=== PATIENT | male | born 1970 | race Caucasian/White ===

== ENCOUNTER 2020-03-11 23:42 | Emergency (ER) | payer SELFPAY ==
[2020-03-11] MEDS ORDERED: Sodium Chloride 0.9% 2.5 ML Syringe FLUSH PRN (23:56)
[2020-03-11] MEDS ORDERED: Sodium Chloride 0.9% 10 ML Syringe FLUSH PRN (23:56)
[2020-03-12] MEDS ORDERED: Ondansetron 4 MG/2 ML SDV IVPUSH ONE ×2 (00:15→02:36)
[2020-03-12] MEDS ORDERED: Sodium Chloride 0.9% 1,000 ML IV SCH ×2 (00:15→01:00)
--- NOTE | 2020-03-12 00:15 | EDM.PDOC ---
ED HPI GENERAL MEDICAL PROBLEM - General Chief Complaint: Abdominal Pain Stated Complaint: ABDOMINAL PAIN/CHEST PAIN Time Seen by Provider: 03/11/20 23:55 Source of Information: Reports: Patient History Limitations: Reports: No Limitations - History of Present Illness INITIAL COMMENTS - FREE TEXT/NARRATIVE: 49-year-old male with history of ventral hernia, cholecystectomy, pancreatic cancer s/p chemotherapy and radiation therapy in 2010, diabetes, pancreatitis presents with abdominal pain. Pain is localized to the epigastrium and right upper quadrant and radiates up to the chest, pain is constant, progressively worsening over the last 2 days, currently rated 9/10, associated with nausea, chest discomfort, abdominal distention, decreased appetite. He denies fever, chills, vomiting, dyspnea. ROS: A 10-point review of systems, other than pertinent positives and negatives as stated per HPI, is otherwise negative Past medical history: No additional pertinent history Past Surgical history: No additional pertinent history Social history: No additional pertinent history Family history: No additional pertinent history PHYSICAL EXAM General: AOx4, GCS = 15, moderate distress HEENT: dry mucous membrane Neck: supple, no meningismus, no Kernig or Brudzinski Cardiac: S1S2 tachycardia Respiratory: CTAB, no crackles or rales, no wheezing Abdomen: Soft, reducible ventral hernia noted, epigastric/right upper quadrant tenderness, no rebound or guarding, nondistended, no pulsatile mass. Back: nontender Musculoskeletal: NVI distally, no deformity Neuro: No focal deficits Right Upper Abdomen Pain Score (Numeric/FACES): 8 - Related Data Allergies Allergy/AdvReac Type Severity Reaction Status Date / Time prochlorperazine Allergy Anxiety Verified 03/12/20 00:05 [From Compazine] Home Meds: Home Meds Insulin Aspart [NovoLOG] IM ASDIRECTED PRN 03/12/20 [History] Insulin Glarg,Human.Rec.Analog [Lantus] 60 unit SUBCUT DAILY 03/12/20 [History] Magnesium Citrate [Citrate of Magnesia] 296 ml PO BID #1 bottle 03/12/20 [Rx] Past Medical History Gastrointestinal History: Reports: Pancreatitis, Other (See Below) Other Gastrointestinal History: pancreatic cancer Genitourinary History: Reports: Renal Calculus Endocrine/Metabolic History: Reports: Diabetes, Type I - Past Surgical History GI Surgical History: Reports: Cholecystectomy Musculoskeletal Surgical History: Reports: Other (See Below) Other Musculoskeletal Surgeries/Procedures:: L hip Social & Family History - Family History Family Medical History: No Pertinent Family History - Recreational Drug Use Recreational Drug Use: No ED ROS GENERAL - Review of Systems Review Of Systems: See Below (see dictation) ED EXAM, GENERAL - Physical Exam Exam: See Below (see dictation) #1 Interpretation EKG Interpretation Comments: Heart rate = 109 bpm, sinus tachycardia, T wave inversion II,III,AWF, normal QRS interval, no STEMI. EKG and rhythm strip interpreted by me at 1205 Course - Vital Signs Last Recorded V/S: Last Vital Signs Temp 97.1 F 03/12/20 00:00 Pulse 108 H 03/12/20 01:35 Resp 18 03/12/20 01:35 BP 146/89 H 03/12/20 01:35 Pulse Ox 97 03/12/20 01:35 - Orders/Labs/Meds Orders: Active Orders 24 hr Category Date Time Status Blood Glucose Check, Bedside [RC] ONETIME Care 03/12/20 01:10 Active EKG Documentation Completion [RC] STAT Care 03/11/20 23:59 Active Pulse Oximetry [RC] ASDIRECTED Care 03/11/20 23:56 Active COMPREHENSIVE METABOLIC PN,CMP [CHEM] Stat Lab 03/11/20 23:56 Results LIPASE [CHEM] Stat Lab 03/11/20 23:56 Results MAGNESIUM [CHEM] Stat Lab 03/11/20 23:56 Results TROPONIN I [CHEM] Stat Lab 03/11/20 23:56 Results Dextrose 50% in Water Med 03/12/20 01:10 Active 50 ml IV ASDIRECTED PRN Glucagon,Human Recombinant [GlucaGen] Med 03/12/20 01:10 Active 1 mg IM ASDIRECTED PRN Sodium Chloride 0.9% [Normal Saline] 1,000 ml Med 03/12/20 00:15 Active IV .BOLUS Sodium Chloride 0.9% [Saline Flush] Med 03/11/20 23:56 Active 10 ml FLUSH ASDIRECTED PRN Sodium Chloride 0.9% [Saline Flush] Med 03/11/20 23:56 Active 2.5 ml FLUSH ASDIRECTED PRN Saline Lock Insert [OM.PC] Stat Oth 03/11/20 23:58 Ordered Medication Orders Dextrose/Water (Dextrose 50% In Water) 50 ml IV ASDIRECTED PRN PRN Reason: Hypoglycemia Glucagon (Glucagen) 1 mg IM ASDIRECTED PRN PRN Reason: Hypoglycemia Sodium Chloride (Normal Saline) 1,000 mls @ 999 mls/hr IV .BOLUS RODRIGO Last Admin: 03/12/20 00:32 Dose: 999 mls/hr Documented by: BREWKRI Sodium Chloride (Saline Flush) 10 ml FLUSH ASDIRECTED PRN PRN Reason: Keep Vein Open Sodium Chloride (Saline Flush) 2.5 ml FLUSH ASDIRECTED PRN PRN Reason: Keep Vein Open Labs: Laboratory Tests 03/12/20 03/12/20 03/12/20 Range/Units 00:00 00:10 00:10 WBC 7.17 (4.0-11.0) K/uL RBC 4.61 (4.50-5.90) M/uL Hgb 15.0 (13.0-17.0) g/dL Hct 43.0 (38.0-50.0) % MCV 93.3 (80.0-98.0) fL MCH 32.5 H (27.0-32.0) pg MCHC 34.9 (31.0-37.0) g/dL RDW Std Deviation 44.9 (28.0-62.0) fl RDW Coeff of Jeremie 13 (11.0-15.0) % Plt Count 182 (150-400) K/uL MPV 10.00 (7.40-12.00) fL Neut % (Auto) 64.9 (48.0-80.0) % Lymph % (Auto) 23.8 (16.0-40.0) % Richardson % (Auto) 9.2 (0.0-15.0) % Eos % (Auto) 1.8 (0.0-7.0) % Baso % (Auto) 0.3 (0.0-1.5) % Neut # (Auto) 4.7 (1.4-5.7) K/uL Lymph # (Auto) 1.7 (0.6-2.4) K/uL Richardson # (Auto) 0.7 (0.0-0.8) K/uL Eos # (Auto) 0.1 (0.0-0.7) K/uL Baso # (Auto) 0.0 (0.0-0.1) K/uL Nucleated RBC % 0.0 /100WBC Nucleated RBCs # 0 K/uL INR Lactate 3.9 H* (0.20-2.00) mmol/L Sodium (136-148) mmol/L Potassium (3.5-5.1) mmol/L Chloride (98-107) mmol/L Carbon Dioxide (21.0-32.0) mmol/L BUN (7.0-18.0) mg/dL Creatinine (0.8-1.3) mg/dL Est Cr Clr Drug Dosing Estimated GFR (MDRD) ml/min Glucose (74-106) mg/dL POC Glucose (60-110) mg/dL Calcium (8.5-10.1) mg/dL Magnesium (1.8-2.4) mg/dL Total Bilirubin (0.2-1.0) mg/dL AST (15-37) IU/L Alkaline Phosphatase (46-116) U/L Troponin I (0.000-0.056) ng/mL Total Protein (6.4-8.2) g/dL Albumin (3.4-5.0) g/dL Globulin (2.6-4.0) g/dL Albumin/Globulin Ratio (0.9-1.6) Lipase (73-393) U/L Urine Color YELLOW Urine Appearance CLEAR Urine pH 7.0 (5.0-8.0) Ur Specific [place] 1.010 (1.001-1.035) Urine Protein NEGATIVE (NEGATIVE) mg/dL Urine Glucose (UA) >=1000 (NEGATIVE) mg/dL Urine Ketones NEGATIVE (NEGATIVE) mg/dL Urine Occult Blood NEGATIVE (NEGATIVE) Urine Nitrite NEGATIVE (NEGATIVE) Urine Bilirubin NEGATIVE (NEGATIVE) Urine Urobilinogen 0.2 (<2.0) EU/dL Ur Leukocyte Esterase NEGATIVE (NEGATIVE) 03/12/20 03/12/20 03/12/20 Range/Units 00:10 00:10 01:50 WBC (4.0-11.0) K/uL RBC (4.50-5.90) M/uL Hgb (13.0-17.0) g/dL Hct (38.0-50.0) % MCV (80.0-98.0) fL MCH (27.0-32.0) pg MCHC (31.0-37.0) g/dL RDW Std Deviation (28.0-62.0) fl RDW Coeff of Jeremie (11.0-15.0) % Plt Count (150-400) K/uL MPV (7.40-12.00) fL Neut % (Auto) (48.0-80.0) % Lymph % (Auto) (16.0-40.0) % Richardson % (Auto) (0.0-15.0) % Eos % (Auto) (0.0-7.0) % Baso % (Auto) (0.0-1.5) % Neut # (Auto) (1.4-5.7) K/uL Lymph # (Auto) (0.6-2.4) K/uL Richardson # (Auto) (0.0-0.8) K/uL Eos # (Auto) (0.0-0.7) K/uL Baso # (Auto) (0.0-0.1) K/uL Nucleated RBC % /100WBC Nucleated RBCs # K/uL INR 0.90 Lactate 3.2 H* (0.20-2.00) mmol/L Sodium 131 L (136-148) mmol/L Potassium 4.4 (3.5-5.1) mmol/L Chloride 95 L (98-107) mmol/L Carbon Dioxide 26.6 (21.0-32.0) mmol/L BUN 12 (7.0-18.0) mg/dL Creatinine 0.9 (0.8-1.3) mg/dL Est Cr Clr Drug Dosing TNP Estimated GFR (MDRD) > 60.0 ml/min Glucose 490 H (74-106) mg/dL POC Glucose (60-110) mg/dL Calcium 8.1 L (8.5-10.1) mg/dL Magnesium 2.4 (1.8-2.4) mg/dL Total Bilirubin 0.7 (0.2-1.0) mg/dL AST 26 (15-37) IU/L Alkaline Phosphatase 155 H (46-116) U/L Troponin I < 0.050 (0.000-0.056) ng/mL Total Protein 7.0 (6.4-8.2) g/dL Albumin 3.6 (3.4-5.0) g/dL Globulin 3.4 (2.6-4.0) g/dL Albumin/Globulin Ratio 1.1 (0.9-1.6) Lipase 105 (73-393) U/L Urine Color Urine Appearance Urine pH (5.0-8.0) Ur Specific [place] (1.001-1.035) Urine Protein (NEGATIVE) mg/dL Urine Glucose (UA) (NEGATIVE) mg/dL Urine Ketones (NEGATIVE) mg/dL Urine Occult Blood (NEGATIVE) Urine Nitrite (NEGATIVE) Urine Bilirubin (NEGATIVE) Urine Urobilinogen (<2.0) EU/dL Ur Leukocyte Esterase (NEGATIVE) 03/12/20 03/12/20 Range/Units 01:50 02:34 WBC (4.0-11.0) K/uL RBC (4.50-5.90) M/uL Hgb (13.0-17.0) g/dL Hct (38.0-50.0) % MCV (80.0-98.0) fL MCH (27.0-32.0) pg MCHC (31.0-37.0) g/dL RDW Std Deviation (28.0-62.0) fl RDW Coeff of Jeremie (11.0-15.0) % Plt Count (150-400) K/uL MPV (7.40-12.00) fL Neut % (Auto) (48.0-80.0) % Lymph % (Auto) (16.0-40.0) % Richardson % (Auto) (0.0-15.0) % Eos % (Auto) (0.0-7.0) % Baso % (Auto) (0.0-1.5) % Neut # (Auto) (1.4-5.7) K/uL Lymph # (Auto) (0.6-2.4) K/uL Richardson # (Auto) (0.0-0.8) K/uL Eos # (Auto) (0.0-0.7) K/uL Baso # (Auto) (0.0-0.1) K/uL Nucleated RBC % /100WBC Nucleated RBCs # K/uL INR Lactate (0.20-2.00) mmol/L Sodium (136-148) mmol/L Potassium (3.5-5.1) mmol/L Chloride (98-107) mmol/L Carbon Dioxide (21.0-32.0) mmol/L BUN (7.0-18.0) mg/dL Creatinine (0.8-1.3) mg/dL Est Cr Clr Drug Dosing Estimated GFR (MDRD) ml/min Glucose (74-106) mg/dL POC Glucose 275 H (60-110) mg/dL Calcium (8.5-10.1) mg/dL Magnesium (1.8-2.4) mg/dL Total Bilirubin (0.2-1.0) mg/dL AST (15-37) IU/L Alkaline Phosphatase (46-116) U/L Troponin I < 0.050 (0.000-0.056) ng/mL Total Protein (6.4-8.2) g/dL Albumin (3.4-5.0) g/dL Globulin (2.6-4.0) g/dL Albumin/Globulin Ratio (0.9-1.6) Lipase (73-393) U/L Urine Color Urine Appearance Urine pH (5.0-8.0) Ur Specific [place] (1.001-1.035) Urine Protein (NEGATIVE) mg/dL Urine Glucose (UA) (NEGATIVE) mg/dL Urine Ketones (NEGATIVE) mg/dL Urine Occult Blood (NEGATIVE) Urine Nitrite (NEGATIVE) Urine Bilirubin (NEGATIVE) Urine Urobilinogen (<2.0) EU/dL Ur Leukocyte Esterase (NEGATIVE) Meds: Medications Generic Name Dose Route Start Last Admin Trade Name Freq PRN Reason Stop Dose Admin Dextrose/Water 50 ml 03/12/20 01:10 Dextrose 50% In Water IV ASDIRECTED PRN Hypoglycemia Glucagon 1 mg 03/12/20 01:10 Glucagen IM ASDIRECTED PRN Hypoglycemia Sodium Chloride 1,000 mls @ 999 mls/hr 03/12/20 00:15 03/12/20 00:32 Normal Saline IV 999 mls/hr .BOLUS RODRIGO Administration Sodium Chloride 10 ml 03/11/20 23:56 Saline Flush FLUSH ASDIRECTED PRN Keep Vein Open Sodium Chloride 2.5 ml 03/11/20 23:56 Saline Flush FLUSH ASDIRECTED PRN Keep Vein Open Discontinued Medications Generic Name Dose Route Start Last Admin Trade Name Freq PRN Reason Stop Dose Admin Hydromorphone HCl 1 mg 03/12/20 02:35 03/12/20 02:43 Dilaudid IVPUSH 03/12/20 02:36 1 mg ONETIME ONE Administration Pantoprazole Sodium 40 mg/ 20 mls @ 420 mls/hr 03/12/20 00:22 03/12/20 00:32 Sodium Chloride IVPUSH 03/12/20 00:24 420 mls/hr ONETIME ONE Administration Sodium Chloride 1,000 mls @ 999 mls/hr 03/12/20 01:00 Normal Saline IV .BOLUS RODRIGO Sodium Chloride 1,000 mls @ 999 mls/hr 03/12/20 01:37 03/12/20 01:39 Normal Saline IV 03/12/20 02:37 999 mls/hr NOW STA Administration Insulin Human Regular 5 unit 03/12/20 01:10 03/12/20 01:38 Novolin R IVPUSH 03/12/20 01:11 5 unit ONETIME ONE Administration Protocol Iopamidol 100 ml 03/12/20 01:43 03/12/20 01:43 Isovue-370 (76%) IVPUSH 03/12/20 01:44 100 ml ONETIME STA Administration Morphine Sulfate 4 mg 03/12/20 00:22 03/12/20 00:36 Morphine IVPUSH 03/12/20 00:23 4 mg ONETIME ONE Administration Ondansetron HCl 4 mg 03/12/20 00:15 03/12/20 00:33 Zofran IVPUSH 03/12/20 00:16 4 mg ONETIME ONE Administration Ondansetron HCl 4 mg 03/12/20 02:36 03/12/20 02:43 Zofran IVPUSH 03/12/20 02:37 4 mg ONETIME ONE Administration - Re-Assessments/Exams Free Text/Narrative Re-Assessment/Exam: 03/12/20 02:37 Blood glucose improved to 275, pain coming back, will give 1 mg IV Dilaudid and 4 mg IV Zofran. Lactic acid improved from 3.9 to 3.2 after 2 L IV fluids. 03/12/20 03:00 After IV fluids, insulin, pain medications in the ER, the patient improved and is currently stable for discharge. His abdominal pain is completely resolved. I performed a repeat exam and did not appreciate new abnormal findings. Patient exhibits normal vital signs and has a normal gait on road test. I advised the patient to return to the ER for reevaluation if symptoms worsened, including fever, worsening pain, or any other worrisome symptoms. I instructed the patient to follow up with their PCP within 2-3 days. MEDICAL DECISION MAKING: I reviewed the patients past medical records, lab and radiographic findings. I discussed the case with the patient. My differential diagnosis included: SBO, pancreatitis, mesenteric ischemia. His lactate was initially 3.9, after 2 L of IV fluids a clear to 3.2. His blood glucose improved from 400s 2-75 after IV fluids. His pain was completely resolved after IV Dilaudid and antiemetics. CT angio A/P was performed given the elevated lactic acidosis, which did not demonstrate any signs of mesenteric ischemia, bowel obstruction. It did demonstrate fecal retention. His lipase was unremarkable for pancreatitis. Patient is stable for outpatient follow-up. Instructed him to take Dulcolax and magnesium citrate for his fecal retention. Departure - Departure Time of Disposition: 03:02 Disposition: Home, Self-Care 01 Condition: Good Clinical Impression: Abdominal pain, Hyperglycemia, Constipation - Discharge Information *PRESCRIPTION DRUG MONITORING PROGRAM REVIEWED*: Not Applicable *COPY OF PRESCRIPTION DRUG MONITORING REPORT IN PATIENT RICCARDO: Not Applicable Prescriptions: Magnesium Citrate [Citrate of Magnesia] 296 ml PO BID #1 bottle Instructions: Hyperglycemia, Constipation, Adult, Abdominal Pain, Adult, [id number] Referrals: PCP,None [Primary Care Provider] - Forms: ED Department Discharge Additional Instructions: The need for follow-up, as well as the timing and circumstances, are variable depending upon the specifics of your emergency department visit. If you don't have a primary care physician on staff, we will provide you with a referral. We always advise you to contact your personal physician following an emergency department visit to inform them of the circumstance of the visit and for follow-up with them and/or the need for any referrals to a consulting specialist. The emergency department will also refer you to a specialist when appropriate. This referral assures that you have the opportunity for follow-up care with a specialist. All of these measure are taken in an effort to provide you with optimal care, which includes your follow-up. Under all circumstances we always encourage you to contact your private physician who remains a resource for coordinating your care. When calling for follow-up care, please make the office aware that this follow-up is from your recent emergency room visit. If for any reason you are refused follow-up, please contact the [facility] Emergency Department at and asked to speak to the emergency department charge nurse. If you do not have a primary care doctor, please follow up with the clinics below within 3-5 days. [facility] - Primary [facility] [address] [place] [address] [address] Sepsis Event Note (ED) - Evaluation Sepsis Screening Result: No Definite Risk - Focused Exam Vital Signs: Vital Signs Temp Pulse Resp BP Pulse Ox 03/12/20 01:35 108 H 18 146/89 H 97 03/12/20 00:00 97.1 F 122 H 22 H 178/104 H 99 - My Orders Last 24 Hours: My Active Orders 03/11/20 23:56 Pulse Oximetry [RC] ASDIRECTED COMPREHENSIVE METABOLIC PN,CMP [CHEM] Stat LIPASE [CHEM] Stat MAGNESIUM [CHEM] Stat TROPONIN I [CHEM] Stat Sodium Chloride 0.9% [Saline Flush] 10 ml FLUSH ASDIRECTED PRN Sodium Chloride 0.9% [Saline Flush] 2.5 ml FLUSH ASDIRECTED PRN 03/11/20 23:58 Saline Lock Insert [OM.PC] Stat 03/11/20 23:59 EKG Documentation Completion [RC] STAT 03/12/20 00:15 Sodium Chloride 0.9% [Normal Saline] 1,000 ml IV .BOLUS 03/12/20 01:10 Blood Glucose Check, Bedside [RC] ONETIME Dextrose 50% in Water 50 ml IV ASDIRECTED PRN Glucagon,Human Recombinant [GlucaGen] 1 mg IM ASDIRECTED PRN - Assessment/Plan Last 24 Hours: My Active Orders 03/11/20 23:56 Pulse Oximetry [RC] ASDIRECTED COMPREHENSIVE METABOLIC PN,CMP [CHEM] Stat LIPASE [CHEM] Stat MAGNESIUM [CHEM] Stat TROPONIN I [CHEM] Stat Sodium Chloride 0.9% [Saline Flush] 10 ml FLUSH ASDIRECTED PRN Sodium Chloride 0.9% [Saline Flush] 2.5 ml FLUSH ASDIRECTED PRN 03/11/20 23:58 Saline Lock Insert [OM.PC] Stat 03/11/20 23:59 EKG Documentation Completion [RC] STAT 03/12/20 00:15 Sodium Chloride 0.9% [Normal Saline] 1,000 ml IV .BOLUS 03/12/20 01:10 Blood Glucose Check, Bedside [RC] ONETIME Dextrose 50% in Water 50 ml IV ASDIRECTED PRN Glucagon,Human Recombinant [GlucaGen] 1 mg IM ASDIRECTED PRN
[2020-03-12] MEDS ORDERED: Pantoprazole 40 MG in Sodium Chloride 0.9% 20 ML IVPUSH ONE (00:22)
[2020-03-12] MEDS ORDERED: Morphine 4 MG/ML Syringe IVPUSH ONE (00:22)
[2020-03-12 00:52] LABS: BLOOD UREA NITROGEN,BUN 12 mg/dL (7.0-18.0); CARBON DIOXIDE,CO2 26.6 mmol/L (21.0-32.0); CHLORIDE,CL 95 mmol/L (98-107); GLUCOSE RANDOM 490 mg/dL (74-106); LIPASE 105 U/L (73-393); POTASSIUM,K 4.4 mmol/L (3.5-5.1); SODIUM,NA 131 mmol/L (136-148)
[2020-03-12] MEDS ORDERED: Glucagon,Human Recombinant 1 MG Vial IM PRN (01:10)
[2020-03-12] MEDS ORDERED: 50% Dextrose in Water 50 ML Syringe IV PRN (01:10)
[2020-03-12] MEDS ORDERED: Insulin Regular, Human 100 Units/ML 10 ML Vial IVPUSH ONE (01:10)
[2020-03-12] MEDS ORDERED: Sodium Chloride 0.9% 1,000 ML IV STA (01:37)
[2020-03-12] MEDS ORDERED: Iopamidol 755 Mg/ML 100 ML Bottle IVPUSH STA (01:43)
--- NOTE | 2020-03-12 01:54 | CR ---
INDICATION: Chest pain TECHNIQUE: Chest radiograph 1 view COMPARISON: None FINDINGS: Moderate degradation of image quality noted due to body habitus. Mediastinum: The mediastinum is normal in appearance. The heart silhouette is normal in size and morphology. Lung: Mild bibasilar subsegmental atelectasis is noted with small lung volumes. No sign of pleural effusion seen. No pneumothorax is identified. Bone and Soft tissue: Unremarkable for age. IMPRESSION: 1. Mild bibasilar subsegmental atelectasis is noted with small lung volumes. Dictated by: Randolph Roberson MD @ 03/12/2020 01:52:27 (Electronically Signed)
[2020-03-12] MEDS ORDERED: HYDROmorphone 1 MG/ML Syringe IVPUSH ONE (02:35)
--- NOTE | 2020-03-12 02:39 | CT ---
INDICATION: Epigastric pain, history of pancreatic cancer, lactate 3.9 TECHNIQUE: CTA abdomen and pelvis acquired with IV contrast. Per cc Isovue 370 COMPARISON: None FINDINGS: Lower chest: Unremarkable. Liver: Unremarkable. Spleen: Unremarkable. Pancreas: Unremarkable. Gallbladder and bile ducts: Cholecystectomy. Kidneys: Small nonobstructing right renal calculi. Adrenal glands: Unremarkable. GI tract: Colonic fecal retention involving the ascending and transverse colon.. Appendix is normal. Vascular structures: Unremarkable. Lymph nodes: Unremarkable. Miscellaneous: Unremarkable. No free air or significant free fluid. Pelvic Organs: Unremarkable. Left-sided hip arthroplasty. Unremarkable for age. IMPRESSION: No definitive findings to explain patient`s epigastric pain. Normal-appearing large and small bowel. Please note that all CT scans at this facility use dose modulation, iterative reconstruction, and/or weight-based dosing when appropriate to reduce radiation dose to as low as reasonably achievable. Dictated by Naveen Bowman MD @ Mar 12 2020 2:28AM Signed by Dr. Naveen Bowman @ Mar 12 2020 2:36AM
== END 2020-03-12 03:15 | disposition home or self-care (01) ==
LOC: MW.ED 23:42
DX: K59.00 Constipation, unspecified (principal); E10.65 Type 1 diabetes mellitus with hyperglycemia; R10.13 Epigastric pain; R10.11 Right upper quadrant pain; Z88.8 Allergy status to other drugs, medicaments and biological substances; Z90.49 Acquired absence of other specified parts of digestive tract; Z85.07 Personal history of malignant neoplasm of pancreas
CPT/HCPCS: 36415; 71045; 74174; 80053; 81003; 82962; 83605; 83690; 83735; 84484; 85025; 85610; 93005; 96374; 96375; 96376; 99284; C9113; J1170; J2270; J2405; J7030; J7040; Q9967; 93010; 99283; J1815-GY

== ENCOUNTER 2020-03-12 17:23 | Emergency (ER) | payer SELFPAY ==
[2020-03-12] MEDS ORDERED: Sodium Chloride 0.9% 2.5 ML Syringe FLUSH PRN (18:23)
[2020-03-12] MEDS ORDERED: Sodium Chloride 0.9% 10 ML Syringe FLUSH PRN (18:23)
[2020-03-12] MEDS ORDERED: Alum Hydrox/Mag Hydrox/Simeth 15 ML, Lidocaine 2% 5 ML PO ONE ×2 (18:28)
[2020-03-12] MEDS ORDERED: Sodium Chloride 0.9% 1,000 ML IV ONE ×2 (18:53→19:44)
[2020-03-12] MEDS ORDERED: HYDROmorphone 1 MG/ML Syringe IVPUSH ONE (18:56)
--- NOTE | 2020-03-12 18:58 | EDM.PDOC ---
<Juan Serna - Last Filed: 03/12/20 18:57> ED HPI GENERAL MEDICAL PROBLEM - General Chief Complaint: Abdominal Pain Stated Complaint: ABDOMINAL PAIN Time Seen by Provider: 03/12/20 17:36 - History of Present Illness INITIAL COMMENTS - FREE TEXT/NARRATIVE: CHIEF COMPLAINT(S): Abdominal pain HISTORY OF PRESENT ILLNESS: This is a 49-year-old man with a past medical history of pancreatic cancer in 2009 and history of chronic pancreatitis and nephrolithiasis who comes to the emergency department with a chief complaint of abdominal pain. The patient states that he was evaluated in the emergency department yesterday. He states that he felt better when he went home however the pain has worsened. He states that he was given laxatives and magnesium citrate for constipation and he did have multiple watery bowel movements today but now formed stools. He states that he is experiencing the continued pain in his right upper abdomen which he describes as constant and achy which radiates to his back. He does have some associated nausea but denies any vomiting. He denies any hematemesis, bilious emesis, hematochezia, or melena. He denies any dysuria. He states that this does not feel like the prior episodes of his nephrolithiasis and does not feel like when he had pancreatic cancer and it feels similar to when he had pancreatitis. He states that he has been tolerating p.o. however today after eating he did feel the pain worsen. He denies any chest pain, shortness of breath, cough, fever, or chills. He denies any other symptoms. REVIEW OF SYSTEMS: Constitutional: Denies fever, chills. Eyes: Denies eye pain Ears, Nose, Mouth, & Throat: Denies earache Cardiovascular: Denies chest pain Respiratory: Denies shortness of breath Gastrointestinal: Positive for abdominal pain and nausea. Denies vomiting, diarrhea, hematochezia, hematemesis, bilious emesis Genitourinary: Denies hematuria Skin:Denies a rash Neurological: Denies blurred vision Psychiatric: Denies depression PAST MEDICAL HISTORY: As per history of present illness and as reviewed below otherwise noncontributory. SURGICAL HISTORY: As per history of present illness and as reviewed below otherwise noncontributory. SOCIAL HISTORY: As per history of present illness and as reviewed below otherwise noncontributory. FAMILY HISTORY: As per history of present illness and as reviewed below otherwise noncontributory. EXAMINATION OF ORGAN SYSTEMS/BODY AREAS: Constitutional: Blood pressure is 140/101, heart rate 133, respiratory rate 20 with an oxygen saturation 95% on room air. Temperature 37.2 General: Middle-aged gentleman who does not appear to be in any acute distress who is walking around the room Psychiatric: Appropriate mood and affect. Eyes: No scleral icterus or conjunctival erythema ENMT: Moist mucous membranes. No pharyngeal erythema Cardiovascular: Tachycardic but regular no gallops, murmurs, or rubs. Bilateral upper extremity pulses symmetric and intact. No peripheral edema. No JVD. Respiratory: Lungs clear to auscultation bilaterally. No wheezes, rales, or rhonchi. Gastrointestinal: Soft, distended, mild tenderness to palpation in the right upper quadrant. Negative Guthrie's and McBurney's. Normoactive bowel sounds no tympany to palpation. Negative fluid wave. Liver is palpated in the patient's right flank. Genitourinary: No suprapubic tenderness no CVA tenderness Musculoskeletal: Normal range of motion. Skin: No lesions or abrasions. Neurological: Alert, GCS 15 MEDICAL DECISION MAKING AND COURSE IN THE ED WITH INTERPRETATION/REVIEW OF DIAGNOSTIC STUDIES: This is a 49-year-old man with a past medical history of pancreatic cancer in remission in 2009, nephrolithiasis, and history of chronic pancreatitis who comes to the emergency department with continued right upper quadrant abdominal pain associated with nausea who is tachycardic but overall appears well. At this time I did review the patient's chart and his laboratory analysis yesterday reveals a lactic acidosis and hyperglycemia without any evidence of transaminitis or pancreatitis with 2 - troponins and a negative urinalysis. The patient did receive a CTA of the abdomen and pelvis which did not reveal any abnormalities of the pancreas, liver, spleen but did reveal stool burden. At this time I do not believe further imaging is indicated. I did have a discussion with the patient that we would like to repeat labs to evaluate for any changes. I will provide the patient with 1 L of normal saline bolus, 1 mg of Dilaudid for pain, and a GI cocktail. Differential could also include peptic ulcer disease however unlikely given the lactic acidosis from yesterday. Also send a repeat lipase and a hepatitis panel. At the time of signout, the patient's laboratory analysis was pending. The patient was pending laboratory analysis and work-up. DISPOSITION: Patient was signed out to oncoming team physician Abdominal Pain Score (Numeric/FACES): 10 - Related Data Allergies Allergy/AdvReac Type Severity Reaction Status Date / Time prochlorperazine Allergy Anxiety Verified 03/12/20 00:05 [From Compazine] Home Meds: Home Meds Insulin Aspart [NovoLOG] IM ASDIRECTED PRN 03/12/20 [History] Insulin Glarg,Human.Rec.Analog [Lantus] 60 unit SUBCUT DAILY 03/12/20 [History] LORazepam [Ativan] 0.5 mg PO Q6H PRN #10 tab 03/12/20 [Rx] Magnesium Citrate [Citrate of Magnesia] 296 ml PO BID #1 bottle 03/12/20 [Rx] methylPREDNISolone [Medrol Dose Pack] 4 mg PO DAILY #21 tab 03/12/20 [Rx] Past Medical History Gastrointestinal History: Reports: Pancreatitis, Other (See Below) Other Gastrointestinal History: pancreatic cancer Genitourinary History: Reports: Renal Calculus Endocrine/Metabolic History: Reports: Diabetes, Type I - Past Surgical History GI Surgical History: Reports: Cholecystectomy Musculoskeletal Surgical History: Reports: Other (See Below) Other Musculoskeletal Surgeries/Procedures:: L hip Social & Family History - Family History Family Medical History: No Pertinent Family History - Tobacco Use Tobacco Use Status *Q: Never Tobacco User - Recreational Drug Use Recreational Drug Use: No ED ROS GENERAL - Review of Systems Review Of Systems: See Below ED EXAM, GENERAL - Physical Exam Exam: See Below Departure - Departure Disposition: Home, Self-Care 01 Clinical Impression: Abdominal pain, Nausea and vomiting, Lactic acid increased, Hyperglycemia - Discharge Information Prescriptions: LORazepam [Ativan] 0.5 mg PO Q6H PRN #10 tab PRN Reason: Nausea/Vomiting methylPREDNISolone [Medrol Dose Pack] 4 mg PO DAILY #21 tab Instructions: Nausea, Adult, Abdominal Pain, Adult, [id number] Referrals: PCP,None [Primary Care Provider] - Forms: ED Department Discharge Additional Instructions: [facility] - General Surgery Professional [address], [address] [place] [address] The following information is given to patients seen in the emergency department who are being discharged to home. This information is to outline your options for follow-up care. We provide all patients seen in our emergency department with a follow-up referral. The need for follow-up, as well as the timing and circumstances, are variable depending upon the specifics of your emergency department visit. If you don't have a primary care physician on staff, we will provide you with a referral. We always advise you to contact your personal physician following an emergency department visit to inform them of the circumstance of the visit and for follow-up with them and/or the need for any referrals to a consulting specialist. The emergency department will also refer you to a specialist when appropriate. This referral assures that you have the opportunity for follow-up care with a specialist. All of these measure are taken in an effort to provide you with optimal care, which includes your follow-up. Under all circumstances we always encourage you to contact your private physician who remains a resource for coordinating your care. When calling for follow-up care, please make the office aware that this follow-up is from your recent emergency room visit. If for any reason you are refused follow-up, please contact the [facility] Emergency Department at and asked to speak to the emergency department charge nurse. Sepsis Event Note (ED) - Evaluation Sepsis Screening Result: No Definite Risk <Tomi Em - Last Filed: 03/12/20 23:12> Course - Vital Signs Text/Narrative:: 1943 hrs. the patient feels much less pain. He still nauseated after 1 dose of Zofran. He understands that tomorrow is Thanksgiving and we had no beds. Observation here is not an option. Plan another liter of fluids and more Zofran and reassess. 8:12 PM a few moments ago I was notified a glucose of 554. A venous blood gas reveals no acidosis. Peripheral bicarb is normal. The patient is noncompliant with his cholesterol medicine for a long time according to him and I suppose he may be noncompliant with his diabetes medicine. At this point patient will be given insulin and fluids and rechecked. 2106 hrs. nausea still present after 8 mg of ondansetron. Patient comfortable otherwise. See orders 2206 hrs. the patient's nausea persists. His pain is tolerable. His lactic acid is improved and his sugar came down with insulin. The patient is able to tolerate p.o. I do not have anything to add except he should probably have endoscopy. The following day will be Thanks day. Believe I will get him home with symptomatic treatment and have him call surgery in 2 days. He should arrange to have endoscopy and follow-up laboratory work. Last Recorded V/S: Last Vital Signs Temp 37.2 C 03/12/20 17:28 Pulse 120 H 03/12/20 18:46 Resp 18 03/12/20 18:46 BP 150/101 H 03/12/20 18:46 Pulse Ox 95 03/12/20 18:46 - Orders/Labs/Meds Orders: Active Orders 24 hr Category Date Time Status Blood Glucose Check, Bedside [RC] ONETIME Care 03/12/20 21:30 Active HEPATITIS PANEL (4) [REF] Stat Lab 03/12/20 18:45 Received Dextrose 50% in Water Med 03/12/20 20:11 Active 50 ml IV ASDIRECTED PRN Glucagon,Human Recombinant [GlucaGen] Med 03/12/20 20:11 Active 1 mg IM ASDIRECTED PRN Sodium Chloride 0.9% [Saline Flush] Med 03/12/20 18:23 Active 10 ml FLUSH ASDIRECTED PRN Sodium Chloride 0.9% [Saline Flush] Med 03/12/20 18:23 Active 2.5 ml FLUSH ASDIRECTED PRN Saline Lock Insert [OM.PC] Stat Oth 03/12/20 18:23 Ordered Medication Orders Dextrose/Water (Dextrose 50% In Water) 50 ml IV ASDIRECTED PRN PRN Reason: Hypoglycemia Glucagon (Glucagen) 1 mg IM ASDIRECTED PRN PRN Reason: Hypoglycemia Sodium Chloride (Saline Flush) 10 ml FLUSH ASDIRECTED PRN PRN Reason: Keep Vein Open Last Admin: 03/12/20 18:44 Dose: 10 ml Documented by: TIMMY Sodium Chloride (Saline Flush) 2.5 ml FLUSH ASDIRECTED PRN PRN Reason: Keep Vein Open Last Admin: 03/12/20 18:44 Dose: 2.5 ml Documented by: TIMMY Labs: Laboratory Tests 03/12/20 03/12/20 03/12/20 Range/Units 18:24 18:24 18:24 WBC 8.77 (4.0-11.0) K/uL RBC 4.82 (4.50-5.90) M/uL Hgb 16.1 (13.0-17.0) g/dL Hct 44.7 (38.0-50.0) % MCV 92.7 (80.0-98.0) fL MCH 33.4 H (27.0-32.0) pg MCHC 36.0 (31.0-37.0) g/dL RDW Std Deviation 44.6 (28.0-62.0) fl RDW Coeff of Jeremie 13 (11.0-15.0) % Plt Count 218 (150-400) K/uL MPV 9.90 (7.40-12.00) fL Neut % (Auto) 73.7 (48.0-80.0) % Lymph % (Auto) 16.0 (16.0-40.0) % [place] % (Auto) 8.7 (0.0-15.0) % Eos % (Auto) 1.4 (0.0-7.0) % Baso % (Auto) 0.2 (0.0-1.5) % Neut # (Auto) 6.5 H (1.4-5.7) K/uL Lymph # (Auto) 1.4 (0.6-2.4) K/uL [place] # (Auto) 0.8 (0.0-0.8) K/uL Eos # (Auto) 0.1 (0.0-0.7) K/uL Baso # (Auto) 0.0 (0.0-0.1) K/uL Nucleated RBC % 0.0 /100WBC Nucleated RBCs # 0 K/uL INR APTT (18.6-31.3) SEC VBG pH (7.31-7.41) VBG pCO2 (35-45) mmHG VBG pO2 (30-40) mmHG VBG HCO3 (22-30) mEq/L VBG Total CO2 (41-51) mmol/L VBG Base Excess (-3.0-3.0) Lactate 5.4 H* (0.20-2.00) mmol/L Sodium 130 L (136-148) mmol/L Potassium 4.3 (3.5-5.1) mmol/L Chloride 94 L (98-107) mmol/L Carbon Dioxide 17.5 L (21.0-32.0) mmol/L BUN 9 (7.0-18.0) mg/dL Creatinine 1.2 (0.8-1.3) mg/dL Est Cr Clr Drug Dosing 77.73 mL/min Estimated GFR (MDRD) > 60.0 ml/min Glucose 554 H* (74-106) mg/dL POC Glucose (60-110) mg/dL Calcium 7.9 L (8.5-10.1) mg/dL Magnesium 2.4 (1.8-2.4) mg/dL Total Bilirubin 0.8 (0.2-1.0) mg/dL AST 27 (15-37) IU/L ALT 35 (14-63) IU/L Alkaline Phosphatase 159 H (46-116) U/L Ammonia (19-54) ug/dL Total Protein 7.6 (6.4-8.2) g/dL Albumin 3.8 (3.4-5.0) g/dL Globulin 3.8 (2.6-4.0) g/dL Albumin/Globulin Ratio 1.0 (0.9-1.6) Lipase 99 (73-393) U/L Acetaminophen <2.0 ug/mL Ketones (NEG) 03/12/20 03/12/20 03/12/20 Range/Units 18:24 18:24 18:24 WBC (4.0-11.0) K/uL RBC (4.50-5.90) M/uL Hgb (13.0-17.0) g/dL Hct (38.0-50.0) % MCV (80.0-98.0) fL MCH (27.0-32.0) pg MCHC (31.0-37.0) g/dL RDW Std Deviation (28.0-62.0) fl RDW Coeff of Jeremie (11.0-15.0) % Plt Count (150-400) K/uL MPV (7.40-12.00) fL Neut % (Auto) (48.0-80.0) % Lymph % (Auto) (16.0-40.0) % [place] % (Auto) (0.0-15.0) % Eos % (Auto) (0.0-7.0) % Baso % (Auto) (0.0-1.5) % Neut # (Auto) (1.4-5.7) K/uL Lymph # (Auto) (0.6-2.4) K/uL [place] # (Auto) (0.0-0.8) K/uL Eos # (Auto) (0.0-0.7) K/uL Baso # (Auto) (0.0-0.1) K/uL Nucleated RBC % /100WBC Nucleated RBCs # K/uL INR 0.86 APTT 22.2 (18.6-31.3) SEC VBG pH 7.42 H (7.31-7.41) VBG pCO2 33 L (35-45) mmHG VBG pO2 75 H (30-40) mmHG VBG HCO3 22 (22-30) mEq/L VBG Total CO2 19 L (41-51) mmol/L VBG Base Excess -2.1 (-3.0-3.0) Lactate (0.20-2.00) mmol/L Sodium (136-148) mmol/L Potassium (3.5-5.1) mmol/L Chloride (98-107) mmol/L Carbon Dioxide (21.0-32.0) mmol/L BUN (7.0-18.0) mg/dL Creatinine (0.8-1.3) mg/dL Est Cr Clr Drug Dosing mL/min Estimated GFR (MDRD) ml/min Glucose (74-106) mg/dL POC Glucose (60-110) mg/dL Calcium (8.5-10.1) mg/dL Magnesium (1.8-2.4) mg/dL Total Bilirubin (0.2-1.0) mg/dL AST (15-37) IU/L ALT (14-63) IU/L Alkaline Phosphatase (46-116) U/L Ammonia 72 H (19-54) ug/dL Total Protein (6.4-8.2) g/dL Albumin (3.4-5.0) g/dL Globulin (2.6-4.0) g/dL Albumin/Globulin Ratio (0.9-1.6) Lipase (73-393) U/L Acetaminophen ug/mL Ketones (NEG) 03/12/20 03/12/20 03/12/20 Range/Units 18:40 21:20 21:21 WBC (4.0-11.0) K/uL RBC (4.50-5.90) M/uL Hgb (13.0-17.0) g/dL Hct (38.0-50.0) % MCV (80.0-98.0) fL MCH (27.0-32.0) pg MCHC (31.0-37.0) g/dL RDW Std Deviation (28.0-62.0) fl RDW Coeff of Jeremie (11.0-15.0) % Plt Count (150-400) K/uL MPV (7.40-12.00) fL Neut % (Auto) (48.0-80.0) % Lymph % (Auto) (16.0-40.0) % [place] % (Auto) (0.0-15.0) % Eos % (Auto) (0.0-7.0) % Baso % (Auto) (0.0-1.5) % Neut # (Auto) (1.4-5.7) K/uL Lymph # (Auto) (0.6-2.4) K/uL [place] # (Auto) (0.0-0.8) K/uL Eos # (Auto) (0.0-0.7) K/uL Baso # (Auto) (0.0-0.1) K/uL Nucleated RBC % /100WBC Nucleated RBCs # K/uL INR APTT (18.6-31.3) SEC VBG pH (7.31-7.41) VBG pCO2 (35-45) mmHG VBG pO2 (30-40) mmHG VBG HCO3 (22-30) mEq/L VBG Total CO2 (41-51) mmol/L VBG Base Excess (-3.0-3.0) Lactate 3.5 H* (0.20-2.00) mmol/L Sodium (136-148) mmol/L Potassium (3.5-5.1) mmol/L Chloride (98-107) mmol/L Carbon Dioxide (21.0-32.0) mmol/L BUN (7.0-18.0) mg/dL Creatinine (0.8-1.3) mg/dL Est Cr Clr Drug Dosing mL/min Estimated GFR (MDRD) ml/min Glucose (74-106) mg/dL POC Glucose 281 H (60-110) mg/dL Calcium (8.5-10.1) mg/dL Magnesium (1.8-2.4) mg/dL Total Bilirubin (0.2-1.0) mg/dL AST (15-37) IU/L ALT (14-63) IU/L Alkaline Phosphatase (46-116) U/L Ammonia (19-54) ug/dL Total Protein (6.4-8.2) g/dL Albumin (3.4-5.0) g/dL Globulin (2.6-4.0) g/dL Albumin/Globulin Ratio (0.9-1.6) Lipase (73-393) U/L Acetaminophen ug/mL Ketones NEGATIVE (NEG) Meds: Medications Generic Name Dose Route Start Last Admin Trade Name Amilcarq PRN Reason Stop Dose Admin Dextrose/Water 50 ml 03/12/20 20:11 Dextrose 50% In Water IV ASDIRECTED PRN Hypoglycemia Glucagon 1 mg 03/12/20 20:11 Glucagen IM ASDIRECTED PRN Hypoglycemia Sodium Chloride 10 ml 03/12/20 18:23 03/12/20 18:44 Saline Flush FLUSH 10 ml ASDIRECTED PRN Administration Keep Vein Open Sodium Chloride 2.5 ml 03/12/20 18:23 03/12/20 18:44 Saline Flush FLUSH 2.5 ml ASDIRECTED PRN Administration Keep Vein Open Discontinued Medications Generic Name Dose Route Start Last Admin Trade Name Tiffanei PRN Reason Stop Dose Admin Al Hydroxide/Mg Hydroxide 15 0 ml 03/12/20 18:28 03/12/20 18:43 ml/ Lidocaine HCl 5 ml PO 03/12/20 18:29 1 each ONETIME ONE Administration Dexamethasone 4 mg 03/12/20 21:49 03/12/20 22:12 Decadron IVPUSH 03/12/20 21:50 4 mg ONETIME ONE Administration Hydromorphone HCl 1 mg 03/12/20 18:56 03/12/20 19:01 Dilaudid IVPUSH 03/12/20 18:57 1 mg ONETIME ONE Administration Sodium Chloride 1,000 mls @ 999 mls/hr 03/12/20 18:53 03/12/20 18:57 Normal Saline IV 03/12/20 19:53 999 mls/hr .Bolus ONE Administration Sodium Chloride 1,000 mls @ 999 mls/hr 03/12/20 19:44 03/12/20 20:14 Normal Saline IV 03/12/20 20:44 999 mls/hr .Bolus ONE Administration Insulin Human Regular 10 unit 03/12/20 20:11 03/12/20 20:33 Novolin R IVPUSH 03/12/20 20:12 10 units ONETIME ONE Administration Protocol Lorazepam 0.5 mg 03/12/20 21:49 03/12/20 22:14 Ativan IVPUSH 03/12/20 21:50 0.5 mg ONETIME ONE Administration Metoclopramide HCl 10 mg 03/12/20 21:05 03/12/20 21:22 Reglan IVPUSH 03/12/20 21:06 Not Given ONETIME ONE Ondansetron HCl 4 mg 03/12/20 19:14 03/12/20 19:17 Zofran IVPUSH 03/12/20 19:15 4 mg ONETIME ONE Administration Ondansetron HCl Confirm 03/12/20 19:15 03/12/20 20:06 Zofran Administered 03/12/20 19:16 Not Given Dose 4 mg .ROUTE .STK-MED ONE Ondansetron HCl 4 mg 03/12/20 19:45 03/12/20 20:15 Zofran IVPUSH 03/12/20 19:46 4 mg ONETIME ONE Administration Departure - Departure Time of Disposition: 23:12 Sepsis Event Note (ED) - Focused Exam Vital Signs: Vital Signs Temp Pulse Resp BP Pulse Ox 03/12/20 18:46 120 H 18 150/101 H 95 03/12/20 17:28 37.2 C 133 H 20 140/101 H - My Orders Last 24 Hours: My Active Orders 03/12/20 20:11 Dextrose 50% in Water 50 ml IV ASDIRECTED PRN Glucagon,Human Recombinant [GlucaGen] 1 mg IM ASDIRECTED PRN 03/12/20 21:30 Blood Glucose Check, Bedside [RC] ONETIME - Assessment/Plan Last 24 Hours: My Active Orders 03/12/20 20:11 Dextrose 50% in Water 50 ml IV ASDIRECTED PRN Glucagon,Human Recombinant [GlucaGen] 1 mg IM ASDIRECTED PRN 03/12/20 21:30 Blood Glucose Check, Bedside [RC] ONETIME
[2020-03-12 19:01] LABS: ACETAMINOPHEN <2.0 ug/mL; BLOOD UREA NITROGEN,BUN 9 mg/dL (7.0-18.0); CARBON DIOXIDE,CO2 17.5 mmol/L (21.0-32.0); CHLORIDE,CL 94 mmol/L (98-107); LIPASE 99 U/L (73-393); POTASSIUM,K 4.3 mmol/L (3.5-5.1)
[2020-03-12] MEDS ORDERED: Ondansetron 4 MG/2 ML SDV IVPUSH ONE ×2 (19:14→19:45)
[2020-03-12] MEDS ORDERED: Ondansetron 4 MG/2 ML SDV ONE (19:15)
[2020-03-12 19:51] LABS: GLUCOSE RANDOM 554 mg/dL (74-106)
[2020-03-12 19:53] LABS: SODIUM,NA 130 mmol/L (136-148)
[2020-03-12] MEDS ORDERED: Glucagon,Human Recombinant 1 MG Vial IM PRN (20:11)
[2020-03-12] MEDS ORDERED: 50% Dextrose in Water 50 ML Syringe IV PRN (20:11)
[2020-03-12] MEDS ORDERED: Insulin Regular, Human 100 Units/ML 10 ML Vial IVPUSH ONE (20:11)
[2020-03-12] MEDS ORDERED: Metoclopramide 10 MG/2 ML SDV IVPUSH ONE (21:05)
[2020-03-12] MEDS ORDERED: Dexamethasone 10 MG/ML SDV IVPUSH ONE (21:49)
[2020-03-12] MEDS ORDERED: LORazepam 2 MG/ML SDV IVPUSH ONE (21:49)
== END 2020-03-12 23:44 | disposition home or self-care (01) ==
LOC: MW.ED 17:23
DX: R10.11 Right upper quadrant pain (principal); R11.2 Nausea with vomiting, unspecified; E10.65 Type 1 diabetes mellitus with hyperglycemia; R74.02 Elevation of levels of lactic acid dehydrogenase [LDH]; Z88.8 Allergy status to other drugs, medicaments and biological substances; Z90.49 Acquired absence of other specified parts of digestive tract; Z79.899 Other long term (current) drug therapy
CPT/HCPCS: 36415; 80053; 80074; 80307; 82009; 82140; 82803; 82962; 83605; 83690; 83735; 85025; 85610; 85730; 96374; 96375; 96376; 99284; A9270; J1100; J1170; J2060; J2405; J7030; 99283; J1815-GY